=== PATIENT | female | born 1965 | race Caucasian/White ===

== ENCOUNTER 2017-04-22 05:37 | Emergency (ER) | payer SELFPAY ==
[~2017-04-22] VITALS: Ht 167.6 cm; Wt 58.6 kg
[~2017-04-22 05:37] MED LIST: AUGMENTIN875 MG PO; CLEOCIN300 MG PO; MOTRIN600 MG PO; NAPROSYN500 MG PO; PEN-VEE K,VEET250 MG PO; PEN-VEE K,VEET500 MG PO; PERCOCET 5/31 TABLET PO; ULTRAM50 MG PO; ZOFRAN ODT4 MG PO
[2017-04-22] MEDS ORDERED: ZITHROMAX Z-PA250 MG PO (06:01)
[2017-04-22 06:15] VITALS: BP 121/79
== END 2017-04-22 06:17 | disposition home or self-care (01) ==
LOC: EME 05:37
DX: J20.9 Acute bronchitis, unspecified (principal)
CPT/HCPCS: 99281; 99283

== ENCOUNTER 2017-10-02 09:29 | Emergency (ER) | payer BC ==
[~2017-10-02] VITALS: Ht 167.6 cm; Wt 61.4 kg
[~2017-10-02 09:29] MED LIST changes: +ZITHROMAX Z-PA250 MG PO
[2017-10-02] MEDS ORDERED: TAMIFLU75 MG PO (14:34)
[2017-10-02 14:44] VITALS: BP 144/86
== END 2017-10-02 14:48 | disposition home or self-care (01) ==
LOC: EME 09:29
PROVIDERS: Emergency Medicine
DX: J10.1 Influenza due to other identified influenza virus with other respiratory manifestations (principal); Z87.891 Personal history of nicotine dependence
CPT/HCPCS: 87502; 99281; 99285; J0780; J1200; J1885; J2405; J7030

== ENCOUNTER 2018-01-09 04:53 | Emergency (ER) | payer BC ==
[~2018-01-09] VITALS: Ht 167.6 cm; Wt 59.6 kg
[~2018-01-09 04:53] MED LIST changes: +TAMIFLU75 MG PO
[2018-01-09] MEDS ORDERED: ULTRAM50 MG PO (05:46)
[2018-01-09] MEDS ORDERED: PEN-VEE K,VEET500 MG PO (05:46)
[2018-01-09] MEDS ORDERED: PEROXIDE SORE236 ML MM (05:46)
[2018-01-09 06:34] VITALS: BP 139/85
== END 2018-01-09 06:35 | disposition home or self-care (01) ==
LOC: EME 04:53
PROC: 3E0T3BZ Introduction of Anesthetic Agent into Peripheral Nerves and Plexi, Percutaneous Approach (ICD-10-PCS; principal; 2018-01-09)
DX: K08.89 Other specified disorders of teeth and supporting structures (principal); K05.10 Chronic gingivitis, plaque induced; K04.7 Periapical abscess without sinus
CPT/HCPCS: 99281; 99283

== ENCOUNTER 2018-01-09 20:09 | Emergency (ER) | payer BC ==
[~2018-01-09] VITALS: Ht 167.6 cm; Wt 59.6 kg
[~2018-01-09 20:09] MED LIST changes: +PEROXIDE SORE236 ML MM
[2018-01-09 23:24] VITALS: BP 118/97
== END 2018-01-09 23:24 | disposition home or self-care (01) ==
LOC: EME 20:09 → EXP 20:09
PROC: 0C96XZZ Drainage of Lower Gingiva, External Approach (ICD-10-PCS; principal; 2018-01-09)
DX: K04.7 Periapical abscess without sinus (principal); Z87.891 Personal history of nicotine dependence
CPT/HCPCS: 99281; 99283